=== PATIENT | male | born 1960 | race Caucasian/White ===

== ENCOUNTER 2021-09-22 11:58 | Observation (INO) ==
--- NOTE | 2021-09-22 12:08 | Emergency Department Note ---
Impression & Plan Atrial fibrillation with RVR, Chest pain ED Provider Note NAME: MYRA DUMONT Jr AGE: 60 SEX: M : 1960 ARRIVES VIA: Walk-In INFORMANT: Patient, ED PROVIDER(S): Myorn Carbone MD Chief Complaint: Chest pain, possible A. fib, dizziness HPI: Patient presents due to concern for A. fib and dizziness with associated chest pain. The patient states this all began around 10 AM this morning he thought that he had stood up too quickly as he felt somewhat dizzy but then his apple watch had noted that he was in an irregular heartbeat rhythm. The patient does have a prior history of A. fib status post ablation at [facility] in [place] completed 2 years prior. The patient is not on any current rate control or anticoagulant medications. Patient denies any fevers but has felt chilled. The patient did state that he had some left-sided chest discomfort that is intermittent occasionally sharp with associated decree sensation in the left face and left arm. The patient denies any other decree sensation. The patient denies any weakness facial droop or slurred speech. No prior history of stroke or mini stroke. Patient denies any upper respiratory symptoms recent surgeries procedures or hospitalizations. No prior history of DVT or PE and denies any calf pain or leg swelling. Patient has followed with Dr. Jeffries with cardiology in the past. ROS: See HPI for pertinent positives and negatives. A total of 10 systems were reviewed and otherwise negative. Past medical history: See below Surgical history: See below Social history: See below Physical Exam: GENERAL: Mildly anxious and appears, wearing glasses, wearing a mask, non-toxic. EYE EXAM: Normal conjunctiva. PERRL, no anisocoria and EOM's grossly intact w/o pain. OROPHARYNX: Moist mucus membranes. Grossly normal dentition. NECK: Supple, no nuchal rigidity, no adenopathy, non-tender. No signs of meningismus. LUNGS: Clear to auscultation. Normal chest wall mechanics. HEART: Irregularly irregular and tachycardic, no MRG. ABDOMEN: Abdomen soft, non-tender, normo-active bowel sounds, no masses, no rebound or guarding. BACK: No CVA TTP. SKIN: No rashes and no bruising. UPPER EXTREMITIES: Upper extremities are grossly normal. LOWER EXTREMITIES: Grossly normal, no edema. NEURO EXAM: A&O x3, cranial nerves II-XII grossly intact, normal speech, moves all 4 extremities on command w/o issue. [id number], no drift, sensation is present in the left face as well as left arm. Differential diagnoses: Cardiac ischemia, aortic dissection, pulmonary embolism, pneumothorax, pneumonia, pericarditis, myocarditis, esophageal rupture, GERD, cholecystitis, pancreatitis, musculoskeletal, as well as other pathologies. Course: Patient was seen and evaluated the bedside. Full history physical exam was performed. EKG interpreted by me Nyla valdes, rate of 116, normal QRS duration, left axis deviation, no obvious ST elevations. Imaging Studies: See Below Cardiac monitoring: An order was placed for continuous cardiac monitoring. The monitor shows a rate of 117 with irregularly irregular and tachycardic rhythm. MDM: Patient presents due to concern for chest discomfort. Blood work was obtained along with an EKG troponin chest x-ray. The patient was ordered IV fluids as well as Lopressor 5 mg every 5 minutes given the patient does have an elevated heart rate and is currently in A. fib. Patient did describe that he had a slight left-sided headache with decree sensation of the left face and arm. The patient is not truly insensate and the patient has good [id number] and no obvious weakness. CT of the head was obtained as a precaution. Patient has a normal white count H&H and platelet count. The patient's kidney function is unremarkable. Troponin is not elevated. COVID-negative chest x-ray is clear. He had negative. Patient did have improvement in his rates and did have improvement in symptoms. I did speak to the on-call chemical technician Dr. Jeffries's who recommended medical admission at this time. Heparin was ordered and started. I did speak with the on-call hospitalist Ramya Thakkar PA-C and the patient was admitted by Dr. Simmons. Critical Care: I have personally spent 47 minutes of critical care time in direct management of this patient. This includes bedside care, interpretation of diagnostic studies, and testing, discussion with consultants, patient, and family members, and other require inpatient management activities. This 47 minutes is in excess of all separately billable procedures. Past Med/Surg History Medical History Asthma C. difficile diarrhea Colitis Dyslipidemia HTN (hypertension) Insomnia Migraines PAF (paroxysmal atrial fibrillation) Surgical History History of appendectomy History of tonsillectomy S/P ablation of atrial fibrillation Social History Smoking Status: Former smoker Hx Alcohol Use: No Hx Substance Use: No Preferred Language: Arabic Communication Ability: Effective Beliefs That Will Affect Care: None Current Living Situation: Spouse Feels Safe at Home: Yes Assistive Devices: Glasses Allergies Allergies Allergy/AdvReac Type Severity Reaction Status Date / Time No Known Allergies Allergy Verified 09/22/21 14:58 Home Meds Home Medications Medication Instructions Recorded Confirmed verapamil 120 mg tablet 120 mg PO BID 09/22/21 09/22/21 zolpidem 10 mg tablet 10 mg PO HS 09/22/21 09/22/21 Previous Rx's Medication Instructions Recorded albuterol sulfate 90 mcg/actuation 2 puff INHALATION Q4 PRN #6.7 gm 05/04/19 aerosol inhaler (Ventolin HFA) lisinopril 10 mg tablet 10 mg PO DAILY #30 tab 05/04/19 Results & Data (ED) Vital Signs Vital Signs - 24 hr 09/22/21 12:04 09/22/21 12:17 09/22/21 12:30 Temperature 36.6 C Temperature Source Temporal Artery Scan Pulse Rate 134 H 105 H 110 H Pulse Rate from SpO2 Sensor Respiratory Rate 18 21 Respiratory Effort / Characteristics Non-Labored Respiratory Depth Normal Blood Pressure 156/91 H 132/86 Blood Pressure Mean 112 101 Pulse Oximetry 97 96 Oxygen Delivery Method Room Air Room Air Sepsis Recent Fever Within 48 Hours No Sepsis New/Unexplained Change in Mental Status No Sepsis Action Taken by Nursing No Action Required 09/22/21 12:31 09/22/21 12:35 09/22/21 12:37 Temperature Temperature Source Pulse Rate 117 H 104 H 109 H Pulse Rate from SpO2 Sensor 104 H Respiratory Rate 20 14 Respiratory Effort / Characteristics Respiratory Depth Blood Pressure 123/92 123/92 Blood Pressure Mean 102 Pulse Oximetry 98 Oxygen Delivery Method Sepsis Recent Fever Within 48 Hours Sepsis New/Unexplained Change in Mental Status Sepsis Action Taken by Nursing 09/22/21 12:40 09/22/21 12:45 09/22/21 13:00 Temperature Temperature Source Pulse Rate 93 H 91 H 82 Pulse Rate from SpO2 Sensor 85 90 74 Respiratory Rate 22 14 16 Respiratory Effort / Characteristics Respiratory Depth Blood Pressure 132/94 112/85 123/92 Blood Pressure Mean 106 94 102 Pulse Oximetry 98 96 96 Oxygen Delivery Method Sepsis Recent Fever Within 48 Hours Sepsis New/Unexplained Change in Mental Status Sepsis Action Taken by Nursing 09/22/21 13:05 09/22/21 13:10 09/22/21 13:15 Temperature Temperature Source Pulse Rate 75 85 98 H Pulse Rate from SpO2 Sensor 83 90 90 Respiratory Rate 21 16 23 Respiratory Effort / Characteristics Respiratory Depth Blood Pressure 133/96 132/89 133/97 Blood Pressure Mean 108 103 109 Pulse Oximetry 97 96 95 Oxygen Delivery Method Sepsis Recent Fever Within 48 Hours Sepsis New/Unexplained Change in Mental Status Sepsis Action Taken by Nursing 09/22/21 13:21 09/22/21 13:25 09/22/21 13:30 Temperature Temperature Source Pulse Rate 110 H 114 H 92 H Pulse Rate from SpO2 Sensor 78 85 Respiratory Rate 9 L 21 23 Respiratory Effort / Characteristics Respiratory Depth Blood Pressure 135/98 146/82 H 119/91 Blood Pressure Mean 110 103 100 Pulse Oximetry 94 96 Oxygen Delivery Method Sepsis Recent Fever Within 48 Hours Sepsis New/Unexplained Change in Mental Status Sepsis Action Taken by Nursing 09/22/21 13:35 09/22/21 13:40 09/22/21 13:45 Temperature Temperature Source Pulse Rate 101 H 100 H 107 H Pulse Rate from SpO2 Sensor 89 100 H 105 H Respiratory Rate 18 18 12 Respiratory Effort / Characteristics Respiratory Depth Blood Pressure 116/89 129/79 116/87 Blood Pressure Mean 98 95 96 Pulse Oximetry 97 96 96 Oxygen Delivery Method Sepsis Recent Fever Within 48 Hours Sepsis New/Unexplained Change in Mental Status Sepsis Action Taken by Nursing 09/22/21 13:50 09/22/21 13:55 09/22/21 14:00 Temperature Temperature Source Pulse Rate 101 H 96 H 93 H Pulse Rate from SpO2 Sensor 96 H 91 H 87 Respiratory Rate 18 18 20 Respiratory Effort / Characteristics Respiratory Depth Blood Pressure 129/99 106/91 129/95 Blood Pressure Mean 109 96 106 Pulse Oximetry 96 97 96 Oxygen Delivery Method Sepsis Recent Fever Within 48 Hours Sepsis New/Unexplained Change in Mental Status Sepsis Action Taken by Nursing 09/22/21 14:05 09/22/21 14:10 09/22/21 14:15 Temperature Temperature Source Pulse Rate 93 H 112 H 103 H Pulse Rate from SpO2 Sensor 91 H 101 H 95 H Respiratory Rate 19 17 19 Respiratory Effort / Characteristics Respiratory Depth Blood Pressure 113/93 123/93 Blood Pressure Mean 99 103 Pulse Oximetry 95 95 97 Oxygen Delivery Method Sepsis Recent Fever Within 48 Hours Sepsis New/Unexplained Change in Mental Status Sepsis Action Taken by Nursing 09/22/21 14:16 09/22/21 14:20 09/22/21 14:25 Temperature Temperature Source Pulse Rate 95 H 109 H 98 H Pulse Rate from SpO2 Sensor 109 H 79 Respiratory Rate 24 17 17 Respiratory Effort / Characteristics Respiratory Depth Blood Pressure 135/82 137/98 125/86 Blood Pressure Mean 99 111 99 Pulse Oximetry 95 94 Oxygen Delivery Method Sepsis Recent Fever Within 48 Hours Sepsis New/Unexplained Change in Mental Status Sepsis Action Taken by Nursing 09/22/21 14:30 09/22/21 14:35 09/22/21 14:41 Temperature Temperature Source Pulse Rate 96 H 120 H 108 H Pulse Rate from SpO2 Sensor 90 87 126 H Respiratory Rate 17 20 20 Respiratory Effort / Characteristics Respiratory Depth Blood Pressure 119/94 137/84 154/100 H Blood Pressure Mean 102 101 118 Pulse Oximetry 94 95 97 Oxygen Delivery Method Sepsis Recent Fever Within 48 Hours Sepsis New/Unexplained Change in Mental Status Sepsis Action Taken by Nursing 09/22/21 14:45 09/22/21 14:46 09/22/21 14:51 Temperature Temperature Source Pulse Rate 108 H 92 H 107 H Pulse Rate from SpO2 Sensor 104 H 87 80 Respiratory Rate 14 18 15 Respiratory Effort / Characteristics Respiratory Depth Blood Pressure 143/79 H 124/90 Blood Pressure Mean 100 101 Pulse Oximetry 96 91 94 Oxygen Delivery Method Sepsis Recent Fever Within 48 Hours Sepsis New/Unexplained Change in Mental Status Sepsis Action Taken by Nursing 09/22/21 14:55 Temperature Temperature Source Pulse Rate 106 H Pulse Rate from SpO2 Sensor 100 H Respiratory Rate 22 Respiratory Effort / Characteristics Respiratory Depth Blood Pressure 143/106 H Blood Pressure Mean 118 Pulse Oximetry 96 Oxygen Delivery Method Sepsis Recent Fever Within 48 Hours Sepsis New/Unexplained Change in Mental Status Sepsis Action Taken by Long Term Medications Current Medication List: was personally reviewed by me Laboratory Data Attestation: I reviewed the patient's lab results. Result diagrams: 09/22/21 12:24 09/22/21 12:24 Lab Results 09/22/21 09/22/21 09/22/21 Range/Units 12:24 12:24 12:24 WBC 6.28 (4.8-10.8) K/uL RBC 4.83 (4.7-6.1) M/uL Hgb 15.8 (14.0-18.0) g/dL Hct 45.5 (42-52) % MCV 94.2 (80-100) fL MCH 32.7 (25-34) pg MCHC 34.7 (32-36) g/dL RDW Std Deviation 47.0 H (36.4-46.3) fL RDW Coeff of Victorino 13.6 (11.5-14.5) % Plt Count 207 (130-400) K/uL MPV 11.0 H (7.4-10.4) fL Immature Gran % (Auto) 0.2 % Neut % (Auto) 54.0 % Lymph % (Auto) 23.4 % Cooke % (Auto) 13.2 % Eos % (Auto) 8.4 % Baso % (Auto) 0.8 % Neut # (Auto) 3.39 (1.4-6.5) K/uL Lymph # (Auto) 1.47 (1.2-3.4) K/uL Cooke # (Auto) 0.83 H (0.11-0.59) K/uL Eos # (Auto) 0.53 H (0-0.5) K/uL Baso # (Auto) 0.05 (0-0.2) K/uL Immature Gran # (Auto) 0.01 (0.00-0.02) K/uL PT 10.9 (9.0-12.0) Seconds INR 1.0 (0.9-1.1) APTT 25.9 (21.0-31.0) Seconds PTT Ratio 0.9 Sodium 137 (136-145) mmol/L Potassium 4.2 (3.5-5.1) mmol/L Chloride 105 (98-107) mmol/L Carbon Dioxide 22 (21-32) mmol/L Anion Gap 10 (3-11) BUN 17 (6-23) mg/dl Creatinine 1.04 (0.6-1.4) mg/dl Est Cr Clr Drug Dosing 82.9 ml/min Est GFR ( Amer) 90.0 ml/min Est GFR (Non-Af Amer) 77.7 ml/min BUN/Creatinine Ratio 16.3 (10-20) Glucose 104 H (70-99(Fasting)) mg/dl Calcium 9.5 (8.5-10.1) mg/dl Phosphorus 2.5 (2.5-4.9) mg/dl Magnesium 2.2 (1.7-2.4) mg/dl Total Bilirubin 0.6 (0.2-1.0) mg/dl AST 13 (13-39) U/L ALT 11 (7-52) U/L Alkaline Phosphatase 68 (34-104) U/L Troponin I High Sens < 2.3 (0-20) pg/ml Total Protein 7.2 (6.0-8.3) gm/dl Albumin 4.5 (3.4-5.0) gm/dl Globulin 2.7 (2.5-4.0) gm/dl Albumin/Globulin Ratio 1.7 (0.9-2) Lipase 60 (11-82) U/L SARS-CoV-2, RNA, NAAT (NEGATIVE) 09/22/21 Range/Units 12:35 WBC (4.8-10.8) K/uL RBC (4.7-6.1) M/uL Hgb (14.0-18.0) g/dL Hct (42-52) % MCV (80-100) fL MCH (25-34) pg MCHC (32-36) g/dL RDW Std Deviation (36.4-46.3) fL RDW Coeff of Victorino (11.5-14.5) % Plt Count (130-400) K/uL MPV (7.4-10.4) fL Immature Gran % (Auto) % Neut % (Auto) % Lymph % (Auto) % Cooke % (Auto) % Eos % (Auto) % Baso % (Auto) % Neut # (Auto) (1.4-6.5) K/uL Lymph # (Auto) (1.2-3.4) K/uL Cooke # (Auto) (0.11-0.59) K/uL Eos # (Auto) (0-0.5) K/uL Baso # (Auto) (0-0.2) K/uL Immature Gran # (Auto) (0.00-0.02) K/uL PT (9.0-12.0) Seconds INR (0.9-1.1) APTT (21.0-31.0) Seconds PTT Ratio Sodium (136-145) mmol/L Potassium (3.5-5.1) mmol/L Chloride (98-107) mmol/L Carbon Dioxide (21-32) mmol/L Anion Gap (3-11) BUN (6-23) mg/dl Creatinine (0.6-1.4) mg/dl Est Cr Clr Drug Dosing ml/min Est GFR ( Amer) ml/min Est GFR (Non-Af Amer) ml/min BUN/Creatinine Ratio (10-20) Glucose (70-99(Fasting)) mg/dl Calcium (8.5-10.1) mg/dl Phosphorus (2.5-4.9) mg/dl Magnesium (1.7-2.4) mg/dl Total Bilirubin (0.2-1.0) mg/dl AST (13-39) U/L ALT (7-52) U/L Alkaline Phosphatase (34-104) U/L Troponin I High Sens (0-20) pg/ml Total Protein (6.0-8.3) gm/dl Albumin (3.4-5.0) gm/dl Globulin (2.5-4.0) gm/dl Albumin/Globulin Ratio (0.9-2) Lipase (11-82) U/L SARS-CoV-2, RNA, NAAT NEGATIVE (NEGATIVE) Administered Medications Heparin Sodium/Dextrose (Heparin Sodium/Dextrose) 25,000 units in 500 mls @ 28 mls/hr IV .[id number] [facility]; Protocol Stop: 10/22/21 14:59 Last Admin: 09/22/21 15:18 Dose: 1,400 units/hr, 28 mls/hr Documented by: [id number] Cosigned by: [id number] Metoprolol Tartrate (Metoprolol Tartrate 1 Mg/Ml Vial) 5 mg IV Q5M PRN PRN Reason: Tachycardia Stop: 10/22/21 12:15 Last Admin: 09/22/21 12:37 Dose: 5 mg Documented by: [id number] Admin: 09/22/21 12:30 Dose: 5 mg Documented by: [id number] Discontinued Medications Acetaminophen (Acetaminophen 325 Mg Tab) Confirm Administered Dose 650 mg .ROUTE .STK-MED ONE Stop: 09/22/21 13:34 Last Admin: 09/22/21 13:34 Dose: 650 mg Documented by: [id number] Aspirin (Aspirin Chew 324 Mg) 324 mg PO NOW STA Stop: 09/22/21 12:17 Last Admin: 09/22/21 12:29 Dose: 324 mg Documented by: [id number] Heparin Sodium/Dextrose (Heparin Iv Adult Wt-Based Standard *No* Bolus Protocol) 1 ea IV ONE ONE; Protocol Stop: 09/22/21 14:42 Last Admin: 09/22/21 15:19 Dose: Not Given Documented by: [id number] Sodium Chloride (Nss 1000ml) 1,000 mls @ 999 mls/hr IV .Q1H1M STA Stop: 09/22/21 13:16 Last Infusion: 09/22/21 13:34 Dose: 0 mls/hr Documented by: [id number] Admin: 09/22/21 12:30 Dose: 999 mls/hr Documented by: [id number] Imaging Data Radiologist's Impression: Head CT 09/22/21 12:16 CT OF THE HEAD WITHOUT CONTRAST CLINICAL HISTORY: tingling L face and arm w/ associated CP COMPARISON STUDY: Head CT July 09, 2009. CT DOSE: 537.48 mGy.cm TECHNIQUE: Helical axial images of the head were obtained without IV contrast. Automated exposure control was utilized for the study. A dose lowering technique was utilized adhering to the principles of ALARA. FINDINGS: No acute intracranial hemorrhage, midline shift or mass effect is present. Ventricular system is normal. Basal cisterns are patent. There are no extra axial collections. Baldwin-white differentiation is preserved. There are no findings to suggest acute dural sinus thrombosis or acute territorial infarct. Moderate sinus mucosal thickening is noted. There are secretions within the right sphenoid and maxillary sinuses. No significant calvarial abnormalities are present. IMPRESSION: No acute intracranial findings. ACT 112: Negative or not required by law. Electronically signed by: Lance Burns M.D. 09/22/2021 12:57 PM Chest X-Ray 09/22/21 12:17 SINGLE VIEW CHEST CLINICAL HISTORY: Atypical chest pain. FINDINGS: 2 AP, portable, upright chest radiographs are compared to study dated 07/06/2015. The cardiomediastinal silhouette is unremarkable. The lungs and pleural spaces are clear. No pneumothorax is seen. The bony thorax is grossly intact. IMPRESSION: No active disease in the chest. ACT 112: Negative or not required by law. Electronically signed by: Grayson Valdez M.D. 09/22/2021 1:22 PM Discharge Plan Visit Data Chief Complaint: Chest Pain Stated Complaint: CHEST PAIN, NUMB ON LEFT SIDE ED Provider: Myron Carbone Discharge Problem: Atrial fibrillation with RVR, Chest pain Forms Stand Alone Forms: [facility] [place] Prescriptions Prescriptions: No Action albuterol sulfate [Ventolin HFA] 90 mcg/actuation Hfa Aerosol Inhaler 2 puff inhalation Q4 PRN (Reason: shortness of breath) Qty: 6.7 RF: 0 lisinopril 10 mg Tablet 10 mg PO DAILY Qty: 30 RF: 0 verapamil 120 mg tablet 120 mg PO BID RF: 0 zolpidem 10 mg tablet 10 mg PO HS RF: 0 Referrals Referrals: Toney Pierce MD [Primary Care Provider] -
[2021-09-22] MEDS ORDERED: ASPIRIN CHEW 324 MG PO STA (12:16)
[2021-09-22] MEDS ORDERED: SODIUM CHLORIDE 0.9% 1000ML 1,000 ML IV STA (12:16)
[2021-09-22] MEDS: METOPROLOL TARTRATE 1 MG/ML VIAL IV PRN ×2 (12:30→12:37)
[2021-09-22 12:37] LABS: Basophils # (auto) 0.05 K/uL (0-0.2); Basophils % (auto) 0.8 %; Eosinophils # (auto) 0.53 K/uL (0-0.5); Eosinophils % (auto) 8.4 %; Hematocrit (blood only) 45.5 % (42-52); Hemoglobin 15.8 g/dL (14.0-18.0); Immature Granulocytes # (auto) 0.01 K/uL (0.00-0.02); Immature Granulocytes % (auto) 0.2 %; Lymphocytes # (auto) 1.47 K/uL (1.2-3.4); Lymphocytes % (auto) 23.4 %; Mean Corpuscular Hemoglobin 32.7 pg (25-34); Mean Corpuscular Hgb Conc 34.7 g/dL (32-36); Mean Corpuscular Volume 94.2 fL (80-100); Monocytes # (auto) 0.83 K/uL (0.11-0.59); Monocytes % (auto) 13.2 %; Neutrophils # (auto) 3.39 K/uL (1.4-6.5); Platelet Count 207 K/uL (130-400); RDW Coefficient of Variation 13.6 % (11.5-14.5); Red Blood Count 4.83 M/uL (4.7-6.1); White Blood Count 6.28 K/uL (4.8-10.8)
[2021-09-22 12:48] LABS: Partial Thromboplastin Ratio 0.9; Partial Thromboplastin Time 25.9 Seconds (21.0-31.0); Prothrombin Time 10.9 Seconds (9.0-12.0)
--- NOTE | 2021-09-22 12:59 | CT Scan Report ---
CT OF THE HEAD WITHOUT CONTRAST CLINICAL HISTORY: tingling L face and arm w/ associated CP COMPARISON STUDY: Head CT July 09, 2009. CT DOSE: 537.48 mGy.cm TECHNIQUE: Helical axial images of the head were obtained without IV contrast. Automated exposure con trol was utilized for the study. A dose lowering technique was utilized adhering to the principles o f ALARA. FINDINGS: No acute intracranial hemorrhage, midline shift or mass effect is present. Ventricular syst em is normal. Basal cisterns are patent. There are no extra axial collections. Baldwin-white differentia tion is preserved. There are no findings to suggest acute dural sinus thrombosis or acute territorial infarct. Moderate sinus mucosal thickening is noted. There are secretions within the right sphenoid and maxillary sinuses. No significant calvarial abnormalities are present. IMPRESSION: No acute intracranial findings. ACT 112: Negative or not required by law. Electronically signed by: Lance Burns M.D. 09/22/2021 12:57 PM
[2021-09-22 13:04] LABS: Troponin I High Sensitivity < 2.3 pg/ml (0-20)
--- NOTE | 2021-09-22 13:23 | XRay Report ---
SINGLE VIEW CHEST CLINICAL HISTORY: Atypical chest pain. FINDINGS: 2 AP, portable, upright chest radiographs are compared to study dated 07/06/2015. The cardio mediastinal silhouette is unremarkable. The lungs and pleural spaces are clear. No pneumothorax is se en. The bony thorax is grossly intact. IMPRESSION: No active disease in the chest. ACT 112: Negative or not required by law. Electronically signed by: Grayson Valdez M.D. 09/22/2021 1:22 PM
[2021-09-22] MEDS ORDERED: ACETAMINOPHEN 325 MG TAB ONE (13:33)
[2021-09-22 14:29] LABS: Alanine Aminotransferase 11 U/L (7-52); Albumin Globulin Ratio 1.7 (0.9-2); Albumin Level 4.5 gm/dl (3.4-5.0); Alkaline Phosphatase 68 U/L (34-104); Anion Gap 10 (3-11); Aspartate Aminotransferase 13 U/L (13-39); BUN Creatinine Ratio 16.3 (10-20); Bilirubin,Total 0.6 mg/dl (0.2-1.0); Blood Urea Nitrogen 17 mg/dl (6-23); Calcium 9.5 mg/dl (8.5-10.1); Carbon Dioxide 22 mmol/L (21-32); Chloride 105 mmol/L (98-107); Creatinine Clr Calc Pharmacy 82.9 ml/min; Est GFR (Non-African American) 77.7 ml/min; Globulin 2.7 gm/dl (2.5-4.0); Glucose 104 mg/dl (70-99(Fasting)); Lipase 60 U/L (11-82); Magnesium 2.2 mg/dl (1.7-2.4); Phosphorus 2.5 mg/dl (2.5-4.9); Potassium 4.2 mmol/L (3.5-5.1); Sodium 137 mmol/L (136-145); Total Protein 7.2 gm/dl (6.0-8.3)
[2021-09-22] MEDS ORDERED: Heparin IV Adult Wt-Based Standard *NO* Bolus Protocol IV ONE (14:41)
--- NOTE | 2021-09-22 14:55 | History & Physical Report ---
Date of Service September 22, 2021 Assessment & Plan (1) Atrial fibrillation with RVR: Plan: Recurrence of atrial fibrillation ~2 yrs after ablation - Observe in PCU - Heparin gtt started in ED - will continue. Pt was on Eliquis for anticoagulation prior to ablation. - Consult cardiology for additional recommendations on management - Received beta-aroldo for rate control initially, continue PRN Lopressor, add metoprolol succinate BID scheduled (2) Dyslipidemia: Plan: Not currently on statin. Check lipids in AM (3) HTN (hypertension): (4) Asthma: Plan: Continue other home medications as appropriate. Pt seen and reviewed with attending physician, Dr. Simmons. Plan of care discussed and as outlined above. Code Status: Full code DVT Prophylaxis: on heparin gtt Danielito Thakkar PA-C History of Present Illness Chief Complaint: Chest Pain Primary Care Provider: Toney Pierce MD This is a 60 y/o male with a PMH of paroxysmal atrial fibrillation s/p ablation in September 2019, mild asthma, HTN, dyslipidemia and migraines who presented to the ED today with symptoms of recurrent atrial fibrillation. Pt was initially diagnosed with atrial fibrillation in Jan 2019. Started on Sotalol in Mar 2019 with initial conversion to sinus rhythm before going back in to afib. He was on Eliquis for anticoagulation. Pt then underwent cardioversion but again had recurrence of afib. Changed from sotalol to amiodarone and ultimately underwent ablation due to recurring episodes of atrial fibrillation lasting a few hours to a few days on October 02, 2019. Pt reports that he has been asymptomatic since the ablation until today. He is no longer on rate control or anticoagulation. This morning, when he got up, he had some lightheadedness with standing but attributed this to getting up too fast. A little while later, he was sitting on the porch and started with left chest heaviness then left arm numbness and discomfort that spread to his left face. The chest heaviness become more of a discomfort then intermittent sharper chest pains. He had associated palpitations. He called his PCP but felt like he was getting worse so he came to the ED for evaluation. Of note, his Apple Watch alarmed afib this morning around 10:15. He reports current symptoms are similar to prior episodes of afib. With improvement in his rate after received Lopressor in the ED, he is feeling somewhat better but has residual chest discomfort and left sided numbness/subjective weak feeling. He denies recent illness or change to his medications. No specific inciting event to symptoms today. Allergies Allergy/AdvReac Type Severity Reaction Status Date / Time No Known Allergies Allergy Verified 09/22/21 14:58 Home Medications Medication Instructions Recorded Confirmed Type albuterol sulfate 90 mcg/actuation 2 puff INHALATION Q4 PRN #6.7 gm 05/04/19 09/22/21 Rx aerosol inhaler (Ventolin HFA) lisinopril 10 mg tablet 10 mg PO DAILY #30 tab 05/04/19 09/22/21 Rx verapamil 120 mg tablet 120 mg PO BID 09/22/21 09/22/21 History zolpidem 10 mg tablet 10 mg PO HS 09/22/21 09/22/21 History Past Med/Surg History Medical History Asthma C. difficile diarrhea Colitis Dyslipidemia HTN (hypertension) Insomnia Migraines PAF (paroxysmal atrial fibrillation) Surgical History History of appendectomy History of tonsillectomy S/P ablation of atrial fibrillation Family History Mother Cancer Father Cancer Sister Heart valve replaced Social History Smoking Status: Former smoker Hx Alcohol Use: Yes (one drink every 2-3 days after work) Hx Substance Use: No Preferred Language: Czech Communication Ability: Effective Beliefs That Will Affect Care: None Current Living Situation: Spouse Feels Safe at Home: Yes Assistive Devices: Glasses Review of Systems Review of Systems: All systems reviewed & are unremarkable except as noted in HPI & below Constitutional: no fever, no chills and no sweats Eyes: as per Subjective / HPI (pt did note some blurry vision this morning); no diplopia Ear, Nose, Mouth, Throat: no nasal congestion, no sore throat and no dysphagia Respiratory: no cough, no dyspnea and no wheezing Cardiovascular: as per Subjective / HPI Gastrointestinal: no abdominal pain, no nausea, no vomiting and no diarrhea/loose stools Genitourinary: no dysuria or no hematuria Musculoskeletal: no back pain and no neck pain Integumentary: no rash and no yellowing of the skin Neurologic: as per Subjective / HPI; no falls, no headache(s) and no confusion Psychiatric: no depression and no anxiety Physical Exam Constitutional: well developed and well nourished; no acute distress Eyes: PERRL, conjunctivae normal, anicteric sclerae ENMT: external ear and nose normal, oropharynx normal Neck: trachea midline Respiratory: no respiratory distress and no labored breathing Auscultation: lungs clear to auscultation bilaterally; no rales, no rhonchi and no wheezes Cardiovascular: Rate/Rhythm: + tachycardic and + irregularly irregular Vessels: radial pulses present Extremities: no pedal edema Gastrointestinal (Abdomen): Inspection/Auscultation: normal bowel sounds; abdomen not distended Percussion/Palpation: abdomen soft Musculoskeletal: Head/Neck/Chest: normocephalic, head atraumatic and neck supple Skin: no jaundice Neurologic: CN's II-XI intact bilaterally and moves all extremities; no focal motor deficits Motor/Sensory: no pronator drift and no asterixis Psychiatric: A+Ox3, euthymic affect Results & Data Results & Data ([facility]) Vital Signs (Past 12 Hours) Vital Signs Temp Pulse Resp BP Pulse Ox 09/22/21 12:45 91 H 14 112/85 96 09/22/21 12:40 93 H 22 132/94 98 09/22/21 12:37 109 H 123/92 09/22/21 12:35 104 H 14 123/92 09/22/21 12:31 117 H 20 98 09/22/21 12:30 110 H 132/86 09/22/21 12:17 105 H 21 96 09/22/21 12:04 36.6 C 134 H 18 156/91 H 97 Laboratory Results Laboratory Results - last 24 hr 09/22/21 09/22/21 09/22/21 12:24 12:24 12:24 WBC 6.28 RBC 4.83 Hgb 15.8 Hct 45.5 MCV 94.2 MCH 32.7 MCHC 34.7 RDW Std Deviation 47.0 H RDW Coeff of Victorino 13.6 Plt Count 207 MPV 11.0 H Immature Gran % (Auto) 0.2 Neut % (Auto) 54.0 Lymph % (Auto) 23.4 [place] % (Auto) 13.2 Eos % (Auto) 8.4 Baso % (Auto) 0.8 Neut # (Auto) 3.39 Lymph # (Auto) 1.47 [place] # (Auto) 0.83 H Eos # (Auto) 0.53 H Baso # (Auto) 0.05 Immature Gran # (Auto) 0.01 PT 10.9 INR 1.0 APTT 25.9 PTT Ratio 0.9 Sodium 137 Potassium 4.2 Chloride 105 Carbon Dioxide 22 Anion Gap 10 BUN 17 Creatinine 1.04 Est Cr Clr Drug Dosing 82.9 Est GFR ( Amer) 90.0 Est GFR (Non-Af Amer) 77.7 BUN/Creatinine Ratio 16.3 Glucose 104 H Calcium 9.5 Phosphorus 2.5 Magnesium 2.2 Total Bilirubin 0.6 AST 13 ALT 11 Alkaline Phosphatase 68 Troponin I High Sens < 2.3 Total Protein 7.2 Albumin 4.5 Globulin 2.7 Albumin/Globulin Ratio 1.7 Lipase 60 SARS-CoV-2, RNA, NAAT 09/22/21 12:35 WBC RBC Hgb Hct MCV MCH MCHC RDW Std Deviation RDW Coeff of Victorino Plt Count MPV Immature Gran % (Auto) Neut % (Auto) Lymph % (Auto) [place] % (Auto) Eos % (Auto) Baso % (Auto) Neut # (Auto) Lymph # (Auto) [place] # (Auto) Eos # (Auto) Baso # (Auto) Immature Gran # (Auto) PT INR APTT PTT Ratio Sodium Potassium Chloride Carbon Dioxide Anion Gap BUN Creatinine Est Cr Clr Drug Dosing Est GFR ( Amer) Est GFR (Non-Af Amer) BUN/Creatinine Ratio Glucose Calcium Phosphorus Magnesium Total Bilirubin AST ALT Alkaline Phosphatase Troponin I High Sens Total Protein Albumin Globulin Albumin/Globulin Ratio Lipase SARS-CoV-2, RNA, NAAT NEGATIVE Diagnostic Findings Chest X-ray 09/22/21 - IMPRESSION: No active disease in the chest. CT Head 09/22/21 - IMPRESSION: No acute intracranial findings. Medications Administered Metoprolol Tartrate (Metoprolol Tartrate 1 Mg/Ml Vial) 5 mg IV Q5M PRN PRN Reason: Tachycardia Stop: 10/22/21 12:15 Last Admin: 09/22/21 12:37 Dose: 5 mg Documented by: [id number] Admin: 09/22/21 12:30 Dose: 5 mg Documented by: [id number] Discontinued Medications Acetaminophen (Acetaminophen 325 Mg Tab) Confirm Administered Dose 650 mg .ROUTE .STK-MED ONE Stop: 09/22/21 13:34 Last Admin: 09/22/21 13:34 Dose: 650 mg Documented by: [id number] Aspirin (Aspirin Chew 324 Mg) 324 mg PO NOW STA Stop: 09/22/21 12:17 Last Admin: 09/22/21 12:29 Dose: 324 mg Documented by: [id number] Sodium Chloride (Nss 1000ml) 1,000 mls @ 999 mls/hr IV .Q1H1M STA Stop: 09/22/21 13:16 Last Infusion: 09/22/21 13:34 Dose: 0 mls/hr Documented by: [id number] Admin: 09/22/21 12:30 Dose: 999 mls/hr Documented by: [id number] Supervising Physician Co-Signing Physician Notes History and physical exam performed History notable for history of paroxysmal A. fib status post ablation in September 2019, hypertension, migraine who presents with episode of lightheadedness, left chest heaviness and left arm numbness pressure discomfort today with palpitations. Physical exam noted for irregularly irregular pulse, tachycardic. Neurological exam unremarkable. Labs grossly unremarkable EKG notable for A. fib with rapid ventricular rate Afib with ventricular rate IV Lopressor as needed Start metoprolol 12.5 mg twice daily. Cardiology consult On heparin drip Agree with plans as detailed Tigist Thakkar PA-C
[2021-09-22] MEDS: HEPARIN SODIUM/DEXTROSE 25,000 UNITS/500 ML BAG IV SCH (15:18)
[2021-09-22] MEDS ORDERED: ACETAMINOPHEN 325 MG TAB PO PRN (18:25)
[2021-09-22] MEDS ORDERED: METOPROLOL TARTRATE 1 MG/ML VIAL IV PRN (18:25)
--- NOTE | 2021-09-22 18:40 | Electrocardiogram Report ---
Test Reason : Blood Pressure : / mmHG Vent. Rate : 116 BPM Atrial Rate : 138 BPM P-R Int : 000 ms QRS Dur : 076 ms QT Int : 336 ms P-R-T Axes : 000 -36 059 degrees QTc Int : 467 ms Atrial fibrillation with rapid ventricular response Left axis deviation Nonspecific ST and T wave abnormality Abnormal ECG When compared with ECG of 11-MAY-2019 08:42, Atrial fibrillation has replaced Sinus rhythm Vent. rate has increased BY 65 BPM Confirmed by Cresencio Nelson ([id number]) on 09/22/2021 6:40:08 PM Referred By: REFERRED SELF Confirmed By:Mack Nelson
[2021-09-22] MEDS: METOPROLOL TARTRATE 25 MG TAB PO SCH (20:32)
[2021-09-22] MEDS: VERAPAMIL HCL 40 MG TAB PO SCH (20:32)
[2021-09-22] MEDS ORDERED: ZOLPIDEM TARTRATE 10 MG TAB PO SCH (21:00)
[2021-09-22 23:51] LABS: Partial Thromboplastin Ratio 2.2
[2021-09-22 23:59] LABS: Partial Thromboplastin Time 60.2 Seconds (21.0-31.0)
[2021-09-23 07:43] LABS: Hematocrit (blood only) 45.1 % (42-52); Hemoglobin 15.5 g/dL (14.0-18.0); Mean Corpuscular Hemoglobin 32.8 pg (25-34); Mean Corpuscular Hgb Conc 34.4 g/dL (32-36); Mean Corpuscular Volume 95.3 fL (80-100); Mean Platelet Volume 11.3 fL (7.4-10.4); Platelet Count 186 K/uL (130-400); RDW Coefficient of Variation 13.8 % (11.5-14.5); RDW Standard Deviation 48.3 fL (36.4-46.3); Red Blood Count 4.73 M/uL (4.7-6.1); White Blood Count 6.37 K/uL (4.8-10.8)
[2021-09-23 08:05] LABS: Partial Thromboplastin Ratio 2.5
[2021-09-23 08:06] LABS: BUN Creatinine Ratio 14.6 (10-20); Calcium 8.7 mg/dl (8.5-10.1); Chol HDL Ratio 2.9 (0-5); Creatinine Clr Calc Pharmacy 89.8 ml/min; Est GFR (African American) 99.2 ml/min; Est GFR (Non-African American) 85.6 ml/min
[2021-09-23 08:19] LABS: Partial Thromboplastin Time 69.8 Seconds (21.0-31.0)
[2021-09-23] MEDS: METOPROLOL TARTRATE 25 MG TAB PO SCH (08:34)
[2021-09-23] MEDS: VERAPAMIL HCL 40 MG TAB PO SCH (08:34)
[2021-09-23] MEDS: HEPARIN SODIUM/DEXTROSE 25,000 UNITS/500 ML BAG IV SCH (08:48)
[2021-09-23] MEDS ORDERED: lisinopril 10 MG TAB PO SCH (09:00)
--- NOTE | 2021-09-23 09:04 | Cardiology Consultation ---
Date of Consultation September 23, 2021 Assessment & Plan (1) Atrial fibrillation with RVR: (2) Dyslipidemia: (3) HTN (hypertension): (4) Asthma: He is already spontaneously converted to normal sinus rhythm. Ultimately will require second PVI attempt. Previously tolerated amiodarone leading up to first PVI so we will restart at this time. Should also be restarted on Eliquis 5 mg p.o. twice daily. My office will call to arrange electrophysiology follow-up in [place]. Okay to DC to home. Will obtain 2D echocardiogram prior to discharge. Discharge does not need to be held up for echocardiogram. History of Present Illness Reason for Consultation: Paroxysmal atrial fibrillation Requesting Physician: [facility] hospitalist group Attending Physician: Mara Simmons MD History of Present Illness Mr. Young is a very pleasant 60-year-old gentleman who is followed with [facility] cardiology in the past for paroxysmal atrial fibrillation status post PVI in 2019. He has been maintained in normal sinus rhythm feeling well off medications. Yesterday in the a.m. he was sitting with his when he suddenly did not feel well. He felt lightheaded, fatigued and washed out. He checked his apple watch and said he was A. fib in the 160s. Upon presentation was found to be back in atrial fibrillation. I discussed with the ER staff he was started on Cardizem drip and heparin drip. He spontaneously converted to normal sinus rhythm at 0 130. Currently feels well. Denies any other recent sicknesses. Allergies Allergy/AdvReac Type Severity Reaction Status Date / Time No Known Allergies Allergy Verified 09/22/21 14:58 Home Medications Medication Instructions Recorded Confirmed Type albuterol sulfate 90 mcg/actuation 2 puff INHALATION Q4 PRN #6.7 gm 05/04/19 09/22/21 Rx aerosol inhaler (Ventolin HFA) lisinopril 10 mg tablet 10 mg PO DAILY #30 tab 05/04/19 09/22/21 Rx verapamil 120 mg tablet 120 mg PO BID 09/22/21 09/22/21 History zolpidem 10 mg tablet 10 mg PO HS 09/22/21 09/22/21 History Patient History Medical History Asthma C. difficile diarrhea Colitis Dyslipidemia HTN (hypertension) Insomnia Migraines PAF (paroxysmal atrial fibrillation) Surgical History History of appendectomy History of tonsillectomy S/P ablation of atrial fibrillation Family History Mother Cancer Father Cancer Sister Heart valve replaced Social History Smoking Status: Former smoker Cigarettes Per Day: 1 pack a day; Smoking End Date: about 10 years ago; Do You Dip or Chew Tobacco: No; Hx Alcohol Use: Yes Alcohol type: beer and hard liquor Hx Substance Use: No Preferred Language: Bengali Communication Ability: Effective Settlement Worker Required: No Beliefs That Will Affect Care: None Current Living Situation: Spouse Other Information That Helps Us Care for You: No Feels Safe at Home: Yes Safety Concerns: Feels Safe At This Time Assistive Devices: Glasses Review of Systems Review of Systems: All systems reviewed & are unremarkable except as noted in HPI & below Physical Exam Physical Exam: Physical Exam: General: Awake, alert and oriented x 3. No acute distress. HEENT: Normocephalic, atraumatic. Pupils equal, round and reactive to light and accommodation. Extraocular muscles are intact. Anicteric sclera. Moist mucous membranes. Neck: No JVD. No bruit. Cardiovascular: Regular. No S-4. Normal S-1 and S-2. No S-3. No murmurs, rubs or gallops. Pulmonary: Clear to auscultation bilaterally. No rales, rhonchi, or wheezing. Abdomen: Bowel sounds x 4, soft. No rebound, guarding or tenderness. No organomegaly. Extremities: No clubbing, cyanosis or edema. +2 pedal pulses bilaterally. Skin: Warm and dry. Results & Data ([facility]) Vital Signs (Past 12 Hours) Vital Signs Temp Pulse Pulse Resp BP Pulse Ox 09/23/21 08:00 36.7 C 71 20 128/87 97 09/23/21 04:04 78 09/23/21 03:42 36.6 C 74 18 112/74 96 09/23/21 00:26 78 115/80 09/22/21 22:48 36.6 C 76 18 120/79 95
[2021-09-23] MEDS ORDERED: APIXABAN 5 MG TABLET PO SCH ×2 (11:30→12:30)
--- NOTE | 2021-09-23 12:26 | Discharge Summary ---
Date of Service September 23, 2021 Admission HPI Per Admitting Provider This is a 60 y/o male with a PMH of paroxysmal atrial fibrillation s/p ablation in September 2019, mild asthma, HTN, dyslipidemia and migraines who presented to the ED today with symptoms of recurrent atrial fibrillation. Pt was initially diagnosed with atrial fibrillation in Jan 2019. Started on Sotalol in Mar 2019 with initial conversion to sinus rhythm before going back in to afib. He was on Eliquis for anticoagulation. Pt then underwent cardioversion but again had recurrence of afib. Changed from sotalol to amiodarone and ultimately underwent ablation due to recurring episodes of atrial fibrillation lasting a few hours to a few days on October 02, 2019. Pt reports that he has been asymptomatic since the ablation until today. He is no longer on rate control or anticoagulation. This morning, when he got up, he had some lightheadedness with standing but attributed this to getting up too fast. A little while later, he was sitting on the porch and started with left chest heaviness then left arm numbness and discomfort that spread to his left face. The chest heaviness become more of a discomfort then intermittent sharper chest pains. He had associated palpitations. He called his PCP but felt like he was getting worse so he came to the ED for evaluation. Of note, his Apple Watch alarmed afib this morning around 10:15. He reports current symptoms are similar to prior episodes of afib. With improvement in his rate after received Lopressor in the ED, he is feeling somewhat better but has residual chest discomfort and left sided numbness/subjective weak feeling. He denies recent illness or change to his medications. No specific inciting event to symptoms today. Admission Exam Per Admitting Provider Constitutional: well developed and well nourished; no acute distress Eyes: PERRL, conjunctivae normal, anicteric sclerae ENMT: external ear and nose normal, oropharynx normal Neck: trachea midline Respiratory: no respiratory distress and no labored breathing Auscultation: lungs clear to auscultation bilaterally; no rales, no rhonchi and no wheezes Cardiovascular: Rate/Rhythm: + tachycardic and + irregularly irregular Vessels: radial pulses present Extremities: no pedal edema Gastrointestinal (Abdomen): Inspection/Auscultation: normal bowel sounds; abdomen not distended Percussion/Palpation: abdomen soft Musculoskeletal: Head/Neck/Chest: normocephalic, head atraumatic and neck supple Skin: no jaundice Neurologic: CN's II-XI intact bilaterally and moves all extremities; no focal motor deficits Motor/Sensory: no pronator drift and no asterixis Psychiatric: A+Ox3, euthymic affect Principal Diagnosis Atrial fibrillation with rapid ventricular rate Discharge Exam Constitutional + well hydrated; no acute distress Eyes PERRL, conjunctivae normal, anicteric sclerae ENMT external ear and nose normal, oropharynx normal Respiratory normal respiratory effort, lungs clear to auscultation Cardiovascular RRR, no murmur, no edema Gastrointestinal (Abdomen) normal bowel sounds, soft, nontender, no hepatosplenomegaly Musculoskeletal no cyanosis or clubbing, extremities motor strength 5/5 Neurologic PERRL, EOMI, accommodation nl, no face palsy, no dysarthria Psychiatric A+Ox3, euthymic affect Discharge Data Allergies Allergy/AdvReac Type Severity Reaction Status Date / Time No Known Allergies Allergy Verified 09/22/21 14:58 Consultations 09/22/21 14:41 ED Decision to Admit Stat 09/22/21 18:25 Consult Cardiology Routine Ordered Studies 09/22/21 12:16 CT head/brain wo con Stat No acute intracranial hemorrhage, midline shift or mass effect is present. Ventricular system is normal. Basal cisterns are patent. There are no extra axial collections. Baldwin-white differentiation is preserved. There are no findings to suggest acute dural sinus thrombosis or acute territorial infarct. Moderate sinus mucosal thickening is noted. There are secretions within the right sphenoid and maxillary sinuses. No significant calvarial abnormalities are present. IMPRESSION: No acute intracranial findings. Hospital Course (1) Atrial fibrillation with RVR: Recurrence of atrial fibrillation ~2 yrs after ablation Was patient was started on heparin drip Patient will had been on Eliquis in the past when he was treated for A. fib required ablation. Was started on beta-blockade. However, patient converted to sinus rhythm overnight. Was evaluated by cardiology and started on amiodarone. Anticoagulation was changed to Eliquis and discharged. There was initial concern for possible insurance preference for Xarelto only. However, Eliquis was authorized as well. Continue verapamil. [employer] Bug[employer] Operator will get in touch to arrange electrophysiology follow-up at [place] for the patient. (2) Dyslipidemia: Not currently on statin. (3) HTN (hypertension): (4) Asthma: Total Time Total Time Spent Total Time Spent (In Minutes): 40 Total Time Includes: Examination of the Patient, Discharge Planning, Medication Reconciliation and Communication With Other Providers Discharge Plan Discharge Items Patient Disposition: Home - Self-Care Reason For Visit: ATRIAL FIBRILLATION WITH RVR Discharge Diagnosis: Atrial fibrillation with rapid ventricular rate Activity: Resume your previous activity Non-emergency contact: Primary Care Provider and [employer] Operator Call non-emergency contact if: you have any medication questions Follow-up/Referrals: Carlos Gillespie DO [[employer] Operator] - (Date & Time 10/08/2021 1:00 PM Provider Carlos Gillespie DO Department Cardiology, [facility] ) Toney Pierce MD [Primary Care Provider] - (Date & Time 09/29/2021 5:40 PM Provider Toney Pierce MD Department Family Medicine [facility] ) Diet: Heart Healthy Addtl Attending Provider Instructions: Mr. Young You came to the hospital complaining of rapid heart rate. You were evaluated and noted to be in atrial fibrillation with rapid ventricular rate. You were evaluated by cook vegetable. Your heart rate converted back to sinus rhythm. You are being discharged on amiodarone. You also started on Eliquis. Please monitor for increased bleeding risk. Cardiology will follow up with you about EP appointment. Ensure follow-up with cardiology as well as your primary doctor. It was a pleasure taking care of you Pending Studies at Discharge: No Stand-Alone Forms: My [facility], Smoking Cessation Medications and DC Order Prescriptions: New amiodarone 200 mg Tablet 200 mg PO BIDM Qty: 60 RF: 0 Eliquis 5 mg tablet 5 mg PO BID Qty: 60 RF: 0 Continued albuterol sulfate [Ventolin HFA] 90 mcg/actuation Hfa Aerosol Inhaler 2 puff inhalation Q4 PRN (Reason: shortness of breath) Qty: 6.7 RF: 0 lisinopril 10 mg Tablet 10 mg PO DAILY Qty: 30 RF: 0 verapamil 120 mg tablet 120 mg PO BID RF: 0 zolpidem 10 mg tablet 10 mg PO HS RF: 0 Discharge Orders: Discharge Order (Routine); Ordered 09/23/21 Ordered By: Mara Montesinos/Other Patient Handouts: Eliquis Oral Tablet 5 mg Admission Data Admit Date/Time: 09/22/21 15:09 Attending Provider: Mara Simmons I. Admit Provider: Mara Simmons I. Primary Care Provider: Toney Pierce Other Providers: Mara Simmons I. ; Erwin Jeffries Other Interventions: Discharge Summary Assessment (RN) Last Done: 09/23/21 12:49
[2021-09-23] MEDS ORDERED: AMIODARONE 200 MG TAB PO SCH (17:00)
--- NOTE | 2021-09-23 19:11 | Electrocardiogram Report ---
Test Reason : Blood Pressure : / mmHG Vent. Rate : 068 BPM Atrial Rate : 068 BPM P-R Int : 136 ms QRS Dur : 084 ms QT Int : 418 ms P-R-T Axes : 030 -27 067 degrees QTc Int : 444 ms Normal sinus rhythm Nonspecific T wave abnormality Abnormal ECG When compared with ECG of 22-SEP-2021 12:09, Sinus rhythm has replaced Atrial fibrillation Vent. rate has decreased BY 48 BPM Nonspecific T wave abnormality, worse in Lateral leads Confirmed by Cresencio Nelson ([id number]) on 09/23/2021 7:10:47 PM Referred By: REFERRED SELF Confirmed By:Mack Nelson
== END 2021-09-23 13:28 | disposition home or self-care (01) ==
LOC: ED 11:58 → 2E 11:58